=== PATIENT | female | born 1935 | race Caucasian/White ===

== ENCOUNTER 2016-12-10 05:37 | Inpatient (IN) | payer MEDICARE, OTHER ==
[2016-12-10] VITALS (12 sets, daily range): BP systolic 90–148; BP diastolic 48–75; PULSE 57–91; RESP 14–18; O2SAT 92–98
[~2016-12-10] VITALS: Ht 157.5 cm; Wt 77.2 kg
[2016-12-10] MEDS: Lactated Ringer's 1,000 ML IV SCH ×5 (05:00→22:15)
[~2016-12-10 05:37] MED LIST: ALBU18HF INH; ASPI325T32 PO; CALC600T12 PO; CHOL10008 PO; DESO15CR25 TOP; DOCU250C2 PO; FLUO60SO2 TOP; METR45CR TOP; NITR0.4T SL; OSPE60TA2 PO; POLY17PO6 PO; RABE20TA27 PO; RANI300C PO; SIMV40TA5 PO; TELM20TA PO; TIOT18CA3 IH
[2016-12-10] MEDS ORDERED: Vancomycin 1,000mg/200 mL NS IV ONE (05:53)
[2016-12-10] MEDS: CeFAZolin 2 Gm/50 mL D5W IV Premix IV SCH ×2 (06:00→07:55)
[2016-12-10] MEDS ORDERED: Bupivacaine Liposome 1.3% 20 mL Inj INFILTRATE SCH (06:00)
[2016-12-10] MEDS: Vancomycin Inj 1,250 MG in 0.9% Sodium Chloride 250 ML IV SCH ×2 (06:00→06:26)
--- NOTE | 2016-12-10 07:28 | PCM.HPANE ---
Patient Data Date of Service: Dec 10, 2016 Surgeon Admitting Provider: Attending Provider:Eder Mcconnell DO Primary Care Physician:Haritha Schumacher MD Other Provider:Meg Veronica Anesthesia Reason for Visit Right Knee Arthritis Ht/WT & BMI Height (Feet): 5 Height (Inches): 2 Weight (Kilograms): 77.2 Body Mass Index 31.00 Allergies Coded Allergies: codeine (Verified Adverse Reaction, Severe, WEIRD DREAMS, 12/02/16) Past Anesthesia History Anesthesia History: Denies:: Abnormal Airway, Anesthesia Reactions, Difficult Intubation, Fam Anesthesia Reaction, Fam Malignant Hypertherm, Malignant Hyperthermia Diabetes History Hx Diabetes?: No MRSA MRSA: No Medications Blood Thinner: Aspirin Hypertension Medication: Yes Home Meds Incl Beta Barbi: No Reported Medications Cholecalciferol (Vitamin D3) (Vitamin D3)1,000 Unit Tab.chew1,000 Unit PO DAILY 12/02/16 Albuterol Sulfate (Ventolin HFA Inhaler)200 Puff/18 Gm Inhaler1 Puff INH Q4 PRN For Wheezing #1 INHALER Ref 0 12/02/16 Tiotropium [place] (Spiriva)18 Mcg Cap.w.dev18 Mcg IH DAILY #1 PKG Ref 0 12/02/16 Simvastatin 40 Mg Dvilgo75 Mg PO HS 30 Days Ref 0 12/02/16 Ranitidine 300 Mg Ljgyhfe414 Mg PO DAILY Ref 0 12/02/16 Ospemifene (Osphena)60 Mg Dmtdgx07 Mg PO DAILY 12/02/16 Nitroglycerin SL (Nitrostat)0.4 Mg Tab.subl0.4 Mg SL Q5MIN PRN For Chest Pain # 1 BOTTLE 12/02/16 Polyethylene Glycol 3350 (Miralax)17 Gm Powd.pack17 Gm PO DAILY 12/02/16 Telmisartan (Micardis)20 Mg Eevdcb91 Mg PO DAILY 12/02/16 Docusate Sodium 250 Mg Bpymqis440 Mg PO DAILY Ref 0 12/02/16 Calcium Carbonate (Calcium)600 Mg Itdwje078 Mg PO DAILY 12/02/16 Aspirin 325 Mg Swawnm442 Mg PO DAILY #1 BOTTLE 12/02/[address] 20 Mg Dquwoa01 Mg PO BID 12/02/16 Discontinued Reported Medications Metronidazole (Metronidazole Cream)45 Gm Cream..g.1 Applic TOP BID #45 GM Ref 0 12/02/16 Fluocinolone Acetonide (Fluocinolone Acetonide 0.01% Solution)60 Ml Solution1 Applic TOP BID PRN For Itching #60 ML Ref 0 12/02/16 Desonide (Desonide Cream)15 Gm Cream..g.1 Applic TOP BID #1 TUBE Ref 0 12/02/16 History History of ENT Problems?: Yes HEENT History: Positive for:: Cataracts (ilir surgery) Hearing Problem Denies:: Abnormal Airway Difficult Intubation Dysphagia Glaucoma Sinus Problem TMJ Denture Type: None Teeth Condition: Within Normal Limits Hx of Heart Problems?: Yes Cardiovascular History: Positive for:: Cardiac Surgery (remote hx of 2 stents (1999)) Hypertension Irregular Heartbeat Valvular Heart Disease (echo 2016 ef 60%) Denies:: AICD Atrial Fibrillation Chest Pain Congestive Heart Failure Heart Murmur Pacemaker Hx of Respiratory Problem?: Yes Respiratory History: Positive for:: Asthma COPD Cough (from reflux) Pneumonia (not for a "long time now") Use of Inhalers / NEBS Denies:: Hemoptysis Oxygen Administration Tuberculosis Use of C-PAP Machine (referred, but did not do sleep study) Hx Neurologic Problems?: No Neurological History: Denies:: CVA Dementia Dizziness Headaches Multiple Sclerosis Parkinson's Disease Seizures Hx of GI Problems?: Yes Hx of Problems?: Yes Genitourinary History: Denies:: Kidney Stones Urinary Tract Infection (not for a couple years now) Female Hx: Positive for:: Problems with Breasts? (benign) Denies:: Currently Skin History: Denies:: History Skin Disorders? Pressure Ulcers Hx Musculoskeletal Problems?: Yes Musculoskeletal History: Positive for:: Degenerative Joint Musculoskeletal Trauma (right knee current admission problem) Osteoarthritis Denies:: Back Injury Fibromyalgia Joint Replacement Myasthenia Gravis Systemic Lupus Hx of Psycho/Social Problems?: No Psycho Social History: Denies:: Anxiety Bipolar Disorder Hx Depression Hx Surgeries?: Yes (gastroplasty, bilat knee, bilat shoulders, lAP AKIRA, ) Hx Any Other Health Problems?: Yes Other History: Positive for:: Cancer (basal cell carcinoma) Hospitalization Denies:: Endocrine Disease Thyroid Disease History Blood Transfusions: Positive for:: Accept Blood Products? Denies:: Blood Transfusions Hx Diabetes: No Hx Alcohol Use: NoHx Substance Use: No Smoking Status: Former Smoker Have You Smoked inLast 12 mo: No Stop/Bang S-Snoring: Do You Snore Loudly: No T-Tired: feel tired, fatigued: No O-Obsered: Observed not breath: No P-Blood Pressure: treated: Yes B- Body Mass Index > 35 kg/m2: No A- Age over 50: Yes N- Neck Large Circumference: No G- Gender Male: No AMBROCIO Total Score: 2 AMBROCIO Risk Assessment: Low Risk, <3 Yes Risk Assessment Category Category 1A: Patient has history of documented sleep apnea, and HAS NOT received any narcotic, sedative or anesthesia administration during this stay. Category 1B: Patient has history of documented sleep apnea, and HAS received any narcotic , sedative or anesthesia administration during this stay Category 2: Patient has SUSPECTED Obstructive Sleep Apnea, and HAS received any narcotic , sedative or anesthesia administration during this stay. Category 3: Patient has SUSPECTED Obstructive Sleep Apnea and HAS NOT received narcotic, sedative or anesthesia administration during this stay. Category 4: Outpatient in Procedural Areas with known sleep apnea or who screen positive for High Risk via the STOP/BANG questionnaire. Exam Exam Vital Signs Vital Signs Date Time Temp Pulse Resp B/P Pulse Ox O2 Delivery O2 Flow Rate FiO2 12/10/16 06:01 36.1 64 17 148/64 96 Room Air General Appearance: Alert, Oriented X3, Cooperative, No Acute Distress HEENT/AIRWAY: MP 2 Lungs: Normal Air Movement Heart: Exam Unremarkable Meds/Labs/Diagnostics Admission Meds Current Medications Lactated Ringer's 1,000 ml @ 120 mls/hr Q8H20M IV Last administered on 05:48; Start 12/10/16 at 05:00; Stop 12/10/16 at 13:19 Vancomycin HCl/ Sodium Chloride (Vancocin Inj/ Normal Saline) 250 ml @ 166.667 mls/hr PREOP IV Last administered on 12/10/16 06:26; Start 12/10/16 at 06:00; Stop 12/10/16 at 17:00 Plan Impression Patient chart reviewed, patient interviewed and anesthestic plan with risks, benefits, and alternatives discussed, and informed consent obtained. NPO per Anesth. Guidelines: Yes ASA Physical Status: ASA3 Severe Disease (copd, cad) Anesthetic Plan: Regional Block (adductor canal block), SAB Bene/Risks/Altern/Consents: Yes HP Complete Prior to Induction: Yes Malachi Pakr MD Dec 10, 2016 07:02
[2016-12-10] MEDS ORDERED: Bupivacaine Liposome 1.3% 20 mL Inj INFILTRATE ONE (08:18)
[2016-12-10] MEDS ORDERED: 0.9% Sodium Chloride 10 mL Inj INFILTRATE ONE (08:18)
[2016-12-10] MEDS ORDERED: Bupivacaine-MPF 0.5% W/EPI 30 mL Inj INFILTRATE ONE (08:18)
[2016-12-10] MEDS ORDERED: Lactated Ringer's 1,000 ML IV SCH (08:23)
[2016-12-10] MEDS ORDERED: Lactated Ringer's 500 ML IV PRN (08:23)
[2016-12-10] MEDS ORDERED: Labetalol 5 mg/mL 4 mL Inj IV PRN (08:25)
[2016-12-10] MEDS ORDERED: Phenylephrine 10,000 mCg/mL Inj IVPUSH PRN (08:25)
[2016-12-10] MEDS ORDERED: EPHEDrine Sulfate 50 mg/mL Inj IVPUSH PRN (08:25)
[2016-12-10] MEDS ORDERED: Albuterol-Ipratropium 3 mL Inhalation Solution NEB PRN (08:25)
[2016-12-10] MEDS ORDERED: Dexamethasone 4 mg/mL Inj IVPUSH PRN (08:25)
[2016-12-10] MEDS ORDERED: MetoCLOpramide 5 mg/mL 2 mL Inj IVPUSH PRN (08:25)
[2016-12-10] MEDS ORDERED: Atropine 0.4 mg/mL Inj IVPUSH PRN (08:25)
[2016-12-10] MEDS ORDERED: HYDROmorphone 1 mg/mL Inj IVPUSH PRN (08:25)
[2016-12-10] MEDS ORDERED: fentaNYL-PF 50 mCg/mL 2 mL Inj IVPUSH PRN (08:25)
[2016-12-10] MEDS ORDERED: Ondansetron 2 mg/mL 2 mL Inj IVPUSH PRN (08:25)
[2016-12-10] MEDS ORDERED: Acetaminophen IV 1,000 MG in IV Premix 1 EACH IV PRN (09:45)
[2016-12-10] MEDS ORDERED: Polyethylene Glycol (PEG) 17 Gm Powder PO PRN (09:45)
[2016-12-10] MEDS ORDERED: HYDROcodone-APAP 5-325 mg Tablet PO PRN (09:45)
[2016-12-10] MEDS ORDERED: Magnesium Hydroxide 10 mL Oral Concentration PO PRN (09:45)
[2016-12-10] MEDS ORDERED: HYDROmorphone 2 mg/mL Inj IVPUSH PRN (09:45)
[2016-12-10] MEDS ORDERED: Sodium Biphos-Phos 133 mL Enema RECTAL PRN (09:45)
[2016-12-10] MEDS ORDERED: diphenhydrAMINE 25 mg Capsule PO PRN (09:45)
--- NOTE | 2016-12-10 09:54 | PCM.ANEP1 ---
Post Anesthesia PACU Phase 1 Assessment Date of Service: Dec 10, 2016 Vital Signs Vital Signs Date Time Temp Pulse Resp B/P Pulse Ox O2 Delivery O2 Flow Rate FiO2 12/10/16 09:50 17 93 12/10/16 09:45 61 14 108/58 94 12/10/16 09:40 36.4 59 17 90/58 93 Room Air 12/10/16 06:01 36.1 64 17 148/64 96 Room Air Anesthetic Administered: Regional Block, SAB Level of Alertness: Awake, talking AMAYA's with Equal Strength: No Pain: No Nausea or Vomiting: No CV Function & Hydration Stable: Yes Airway Device: Oxygen Delivery: Room Air Lungs: Normal Air Movement Dermatome Level: T10 (Umbilicus) PACU Phase 2 Assessment Complications: No Follow up Care: N/A Patient Instructions Provided: N/A Malachi Park MD Dec 10, 2016 09:54
[2016-12-10] MEDS ORDERED: Ondansetron 2 mg/mL 2 mL Inj ONE (10:57)
[2016-12-10] MEDS ORDERED: Propofol 10,000 mCg/mL 20 mL Inj ONE (10:57)
[2016-12-10] MEDS ORDERED: fentaNYL-PF 50 mCg/mL 2 mL Inj ONE (10:57)
[2016-12-10] MEDS ORDERED: Dexamethasone 4 mg/mL Inj ONE (10:57)
[2016-12-10] MEDS ORDERED: Phenylephrine/NS 100 mCg/mL 10 mL Syringe IVPUSH ONE (10:57)
--- NOTE | 2016-12-10 11:02 | DRSVH ---
PROCEDURE: X-RAY RIGHT KNEE, ONE OR TWO VIEWS ([id number]) INDICATIONS: s/p right TKA TECHNIQUE: 2 view(s) of the knee acquired. COMPARISON: None. FINDINGS: Bones: Patient is status post knee joint arthroplasty. Hardware components are in expected position s. Visualized bony structures are intact. Soft tissues: Overlying postoperative changes are noted. IMPRESSION: Expected postoperative appearance. Dictated by: Med Márquez M.D. on 12/10/2016 at 11:00 Approved by: Med Márquez M.D. on 12/10/2016 at 11:00
--- NOTE | 2016-12-10 12:36 | NUR ---
Post Op Pt received from PACU into room 1001 at about 1053. Pt has denied any pain or discomfort, tolerating general diet without c/o nausea. Dressing over R knee CDI. Pt able to wiggle toes, brisk cap refill. Plan of care reviewed with pt, enc to use call light for all needs. Family at bedside. Cont to monitor.
--- NOTE | 2016-12-10 14:51 | OP ---
[address] [address] OPERATIVE REPORT PATIENT: CARLOS A ROTH : 1935 MR#: [id number] ADMIT: 12/10/2016 JOB ID: [id number] DATE OF SURGERY: 12/10/2016 PREOPERATIVE DIAGNOSIS(ES): Right knee degenerative joint disease. POSTOPERATIVE DIAGNOSIS(ES): Right knee degenerative joint disease. PROCEDURE: Right total knee arthroplasty. SURGEON: Eder Mcconnell DO. CLINICAL TEAM LEAD: Maye Ramirez PA-C. INDICATIONS: The patient is an 81-year-old female with right knee severe degenerative arthritis with failed conservative measures and wished to proceed with a right total knee arthroplasty. We discussed the risks, benefits and possible complications of surgery including, but not limited to, injury to nerves and vessels, infection, bleeding, incomplete relief of symptoms, stiffness, need for additional procedures. All questions were answered. She wished to proceed. PROCEDURE IN DETAIL: The patient was brought to the operating room. She was given a preoperative antibiotic, adductor canal block and spinal anesthetic. The right lower extremity was sterilely prepped and draped. One gram TXA was given preoperatively, as well as vancomycin and Ancef. The right knee was sterilely prepped and draped, and a tourniquet was used for hemostasis. An incision was made over the anteromedial knee and dissection was carefully carried through subcutaneous tissue. Electrocautery was used for hemostasis, and a slit was made in the quad tendon leaving a cuff of tissue for repair. This was taken along the medial retinaculum onto the proximal medial tibial face. A small medial release was performed at the time and a portion of the medial meniscus was removed. The patella was then everted, and the distal femur was instrumented with an intramedullary yolande. A 5-degree distal valgus cut angle was chosen with 10 mm planned resection. The block was pinned into position. The cut was performed. Next, the tibia was addressed with an extramedullary tibial cutting guide placed parallel to the long axis of the tibia. This was pinned into position. The cut was performed, completed with an osteotome, and the tibial cut surface was removed. The femur was then sized, felt to be a size 5 with 3 degrees of external rotation. The 4:1 cutting block was pinned into position. The distal femoral cuts were then performed, and some posterior release was performed medially. The remainder of the menisci were then removed and the notch cut was then made by pinning the notch cut guide into position and performing the notch cut. Next, the knee was trialed with a 5 femur and 5 tibia which seemed to fit quite nicely. The patella was then resurfaced with a free-hand type technique, cut from initial thickness of 25 to a thickness of 15. A 35-mm patellar button was chosen, drilled for trial and had excellent tracking. The tibia was drilled and punched. The femur was drilled. The components were then cemented into position beginning with the DePuy Attune fixed bearing 5 tibia, followed by the DePuy Attune posterior stabilized 5 femur and an 8-mm thick poly with 35-mm patellar button. All excess cement was removed and once the cement had been allowed to polymerize, the tourniquet was let down. Electrocautery was used for hemostasis, and the knee was then closed with interrupted #1 Surgilon to repair the capsule and subcu was closed with 2-0 and 3-0 Vicryl, followed by running subcuticular 3-0 V-Loc. A mixture of Exparel, saline and Marcaine was added as an adjunct of local anesthetic. Sterile dressings were applied. Patient tolerated the procedure well. sales and marketing assistant was required for the successful completion of the procedure. Blood loss was 25 cc. POSTOPERATIVE PROTOCOL: Have the patient weightbear to tolerance, use a walker for ambulation and follow up in the clinic in two weeks for a postop check.
[2016-12-10] MEDS ORDERED: Albuterol 2.5 mg/3 mL Inhalation Solution NEB PRN ×2 (14:55→20:00)
[2016-12-10] MEDS ORDERED: CeFAZolin Inj 2 GM in IV Premix 1 EACH IV SCH (16:30)
[2016-12-10] MEDS ORDERED: 0.9% Sodium Chloride 100 ML ONE (19:54)
[2016-12-10] MEDS: CeFAZolin Inj 2 GM in IV Premix 1 EACH IV SCH (20:03)
[2016-12-10] MEDS: Sodium Chloride LOK Flush 10 mL Syringe IV SCH (20:03)
[2016-12-10] MEDS: Senna-Docusate 8.6-50 mg Tablet PO SCH (21:04)
[2016-12-10] MEDS: Pantoprazole 40 mg ER24 Tablet PO SCH (21:04)
[2016-12-11 00:13] VITALS: BP 167/72; PULSE 91; RESP 18; O2SAT 97
[2016-12-11] MEDS: Sodium Chloride LOK Flush 10 mL Syringe IV SCH ×3 (00:49→14:33)
[2016-12-11] MEDS: Ondansetron 2 mg/mL 2 mL Inj IVPUSH PRN ×2 (03:37→10:01)
[2016-12-11] MEDS: CeFAZolin Inj 2 GM in IV Premix 1 EACH IV SCH (03:45)
--- NOTE | 2016-12-11 04:10 | NUR ---
Nursing, NOC shift Assumed care of patient at 2400. Patient is a/o, able to make needs known. R knee is elevated on 1 pillow, bandage and rei wrap is CDI. HOB up 45 degrees r/t GERD; additional pillows provided for repositioning/comfort. Tolerating RA, denies sob/dyspnea. PRN Zofran 8mg given for c/o nausea r/t [place] given @ HS. [place] and sips of ice water helpful, cool cloth to forehead. VSS, call light w/in reach. CTM for changes. Addendum: 12/11/16 at 0624 by MICHAEL LUO RN 0400: patient states "I think the vicodin I had yesterday made my stomach upset." approx 100cc clear watery emesis noted in emesis bag. Continues to take small bites of saltines. Sprite and ice water available at bedside. Tolerated PO Protonix. Ambulated w/ SBA to bathroom. OOB to chair for approx an hour while her visited. Care continues.
[2016-12-11 04:17] VITALS: BP 136/70; PULSE 76; RESP 18; O2SAT 94
[2016-12-11 05:56] LABS: BASOPHILS % (AUTO) 0.2 % (0-3); EOSINOPHILS % (AUTO) 0.1 % (0-5); MONOCYTES % (AUTO) 14.4 % (4-12); Mean Corpuscular Hemoglobin 31.4 pg (27.0-35.0); Mean Corpuscular Volume 92.2 fL (81-100); NEUTROPHILS % (AUTO) 65.2 % (40-74); Platelet Count 220 bil/L (150-400)
[2016-12-11] MEDS ORDERED: Pantoprazole 40 mg ER24 Tablet PO SCH (06:30)
[2016-12-11] MEDS: OSPEMIFENE 60 MG PO SCH (08:30)
[2016-12-11] MEDS: Senna-Docusate 8.6-50 mg Tablet PO SCH ×2 (08:30→20:30)
[2016-12-11] MEDS: Calcium Carbonate (Oyster Shell) 500 mg Tablet PO SCH (08:30)
[2016-12-11] MEDS: Polyethylene Glycol (PEG) 17 Gm Powder PO SCH (08:30)
[2016-12-11] MEDS ORDERED: Tiotropium 18mcg/Cap 5 Capsule Inhaler Kit INHALATION SCH (08:30)
--- NOTE | 2016-12-11 09:33 | PCM.PNORTH ---
Subjective Date of Service: Dec 11, 2016 Visit Information: Reason for Visit Right Knee Arthritis Surgery/Surgery Date right TKA 12/10/2016 Post-Op Day # 1 Date of Admission: Dec 10, 2016 at 10:56 Hospital Day # Subjective Patient complains of nausea and vomiting. She ambulated well yesterday and sat up in a chair for a few hours. This morning she "feels terrible". Postop General: No Shortness of Breath, No Chest Pain Pain Management: PO Objective Exam Objective Patient is seen sitting up in bed Vital Signs and I/O Vital Sign - Last Date Time Temp Pulse Resp B/P Pulse Ox O2 Delivery O2 Flow Rate FiO2 12/11/16 04:17 36.9 76 18 136/70 94 Room Air 12/10/16 10:40 2 Intake and Output 12/10/16 12/10/16 12/11/16 Cumulative From/Thru 15:00 23:00 07:00 12/02/16 16:01 - 12/11/16 06:26 Intake Total 1270 ml 926 ml 200 ml 2646 ml Output Total 25 ml 1020 ml 700 ml 1745 ml Balance 1245 ml -94 ml -500 ml 901 ml Intake Oral 850 ml 200 ml 1050 ml IV Total 1270 ml 76 ml 1596 ml Output Urine Total 1020 ml 700 ml 1720 ml Estimated Blood Loss 25 ml 25 ml # Bowel Movements 0 0 0 Lab & Micro Results Laboratory Tests Test 12/11/16 05:35 White Blood Count 12.5th/mm3 (3.8-10.1) Red Blood Count 4.24mil/mm3 (3.90-5.20) Hemoglobin 13.3g/dL (12.0-15.6) Hematocrit 39.1% (35.0-46.0) Mean Corpuscular Volume 92.2fL (81-100) Mean Corpuscular Hemoglobin 31.4pg (27.0-35.0) Mean Corpuscular Hemoglobin Concent 34.0% (32.0-37.0) Red Cell Distribution Width 13.3% (12.3-15.4) Platelet Count 220bil/L (150-400) Neutrophils (%) (Auto) 65.2% (40-74) Lymphocytes (%) (Auto) 19.9% (14-46) Monocytes (%) (Auto) 14.4% (4-12) Eosinophils (%) (Auto) 0.1% (0-5) Basophils (%) (Auto) 0.2% (0-3) Sodium Level 136mEq/L (134-144) Potassium Level 4.2mEq/L (3.5-5.2) Chloride Level 98mEq/L (97-108) Carbon Dioxide Level 20mmol/L (18-29) Blood Urea Nitrogen 17mg/dL (8-27) Creatinine 1.23mg/dL (0.57-1.00) Estimat Glomerular Filtration Rate 60mL/min (>59) Glucose Level 130mg/dL (60-99) Calcium Level 9.1mg/dL (8.5-10.1) Result Diagram: 12/11/1635 12/11/1635 General Appearance: Alert, Oriented X3, Cooperative, Mild Distress Extremities: Distal Pulses Palpable, No Compartment Syndrom Noted, Thigh & Calf Soft/Nontender Postop Sensory Motor: Distal Motor Intact, Distal Sensation Intact, NVI Distally SURGICAL WOUND : Wound Location/Description Right knee: Surgical dressing is clean, dry and intact Activity: Activity per PT Catheters: None Assessment & Plan Impression POD #1 status post right TKA Problems: Plan Weightbearing: Weightbearing as tolerated with wheeled walker DVT prophylaxis: aspirin 325 mg twice a day 6 weeks Physical therapy for transfers, progressive ambulation, therapeutic exercise We will continue with Tylenol IV for pain control. Tramadol is also ordered. Fentanyl patch 12 g is also ordered. Hopefully these will manage the patient' s pain and avoid oral medications today until her stomach settles down Wound care: PA will change dressing on postop day 2 Discharge plan: Discharge home in 1-2 days. Start outpatient physical therapy next week Follow-up plan: In 2 weeks at [facility] with PA for wound check and at [address] Mcconnell with x-rays Pain Management: [place] Tylenol IV VTE Prophylaxis: SCDs, Other (aspirin) Resuscitation Status: CPR: Attempt Resuscitation [place] ValleyMaye Hennessy PA-C Dec 11, 2016 09:33
[2016-12-11] MEDS ORDERED: Magnesium Hydroxide 10 mL Oral Concentration PO PRN (10:09)
[2016-12-11 10:22] VITALS: BP 178/81; PULSE 70; RESP 18; O2SAT 96
[2016-12-11] MEDS: Lactated Ringer's 1,000 ML IV SCH ×2 (10:45→23:15)
[2016-12-11 11:30] VITALS: PULSE 72; RESP 18; O2SAT 92
[2016-12-11] MEDS: Tiotropium 18mcg/Cap 5 Capsule Inhaler Kit INHALATION SCH (11:46)
[2016-12-11] MEDS: Pantoprazole 40 mg ER24 Tablet PO SCH ×2 (11:50→19:41)
--- NOTE | 2016-12-11 11:58 | NUR ---
Fentanyl patch / Nausea / Ambulation Fentanyl Patch placed on upper right chest. Nausea continues intermittently. Per pt she will fee fine and then all the sudden nauseas again. 8mg Zofran given which seems to help some. Movement and pain seem to increase nausea. Ambulated SBA FWW well to bathroom. Care continues
[2016-12-11] MEDS ORDERED: MetoCLOpramide 5 mg/mL 2 mL Inj IVPUSH PRN (12:25)
[2016-12-11] MEDS: hydrOXYzine Pamoate 25 mg Capsule PO PRN ×2 (14:55→19:41)
--- NOTE | 2016-12-11 17:45 | NUR ---
Social Work- Initial Assessment/ Readiness for D/C/Multidisciplinary Rounds Data: See Initial Assessment and Advance Directive Intervention for additional information. Pt discussed in rounds. Pt is POD 1. Pt is not ready for discharge at this time. PT is working with pt, SW will continue to follow for d/c planning needs as mobility progresses. Pt is a 81 year old female admitted 12/10/16 for right TKA per H&P. Pt's insurance is [employer] and [employer]. Pt's PCP is Haritha Schumacher MD. Pt's readmit risk score is not listed at this time. SW met with pt at bedside regarding discharge plan, SW role explained. Pt alert and oriented x3. Pt's capacity for self-care assessed. Pt resides in [place] in a home with spouse. Pt is independent with ADLs and self-care. Pt uses no DME at baseline but has a cane and walker available for use. Pt drives. Pt has no history with HH services. Pt has no history with SNF services. Pt has no DPOA on file and SW requested that pt bring in copy of DPOA. Pt already has her outpt PT coordinated. SW provided Discharge planning Checklist and requested that pt contact [employer] [facility] if needs identified. SW provided phone number and plan on whiteboard. Pt anticipated to discharge home via POV with her . Pt agreeable. SW will continue to follow. Assessment: Pt who is independent at baseline. Plan: Pt anticipated to discharge home via POV with her . SW will continue to follow. PRADEEP Sgaastume Addendum: 12/11/16 at 1747 by STEPHANIE KEMP Amended: Links added.
[2016-12-11 19:23] VITALS: BP 177/83; PULSE 76; RESP 18; O2SAT 94
[2016-12-11 21:32] VITALS: PULSE 77; RESP 18; O2SAT 93
[2016-12-12] MEDS: Sodium Chloride LOK Flush 10 mL Syringe IV SCH ×2 (00:30→08:33)
--- NOTE | 2016-12-12 01:11 | NUR ---
Sleep Patient denies pain and nausea at this time. Sleeping soundly at each rounding. Bed in low position, call light within reach, intentional rounding.
[2016-12-12 04:22] VITALS: BP 165/79; PULSE 78; O2SAT 95
[2016-12-12 06:23] LABS: BASOPHILS % (AUTO) 0.2 % (0-3); EOSINOPHILS % (AUTO) 0.4 % (0-5); MONOCYTES % (AUTO) 14.8 % (4-12); Mean Corpuscular Hemoglobin 30.9 pg (27.0-35.0); Mean Corpuscular Volume 93.4 fL (81-100); NEUTROPHILS % (AUTO) 69.8 % (40-74); Platelet Count 189 bil/L (150-400)
[2016-12-12] MEDS ORDERED: Pantoprazole 4 mg/mL 10 mL Inj IVPUSH SCH (07:30)
[2016-12-12] MEDS: OSPEMIFENE 60 MG PO SCH (08:30)
[2016-12-12] MEDS: Polyethylene Glycol (PEG) 17 Gm Powder PO SCH (08:30)
[2016-12-12] MEDS: Senna-Docusate 8.6-50 mg Tablet PO SCH (08:31)
[2016-12-12] MEDS: Pantoprazole 40 mg ER24 Tablet PO SCH (08:31)
[2016-12-12] MEDS: Calcium Carbonate (Oyster Shell) 500 mg Tablet PO SCH (08:32)
[2016-12-12] MEDS: hydrOXYzine Pamoate 25 mg Capsule PO PRN (08:34)
[2016-12-12] MEDS: Tiotropium 18mcg/Cap 5 Capsule Inhaler Kit INHALATION SCH (08:35)
--- NOTE | 2016-12-12 08:46 | PCM.PNORTH ---
Subjective Date of Service: Dec 12, 2016 Visit Information: Reason for Visit Right Knee Arthritis Surgery/Surgery Date R TKA 12/10/16 Post-Op Day # 2 Date of Admission: Dec 10, 2016 at 10:56 Hospital Day # Subjective Patient reports feeling much better today. Her abdominal issues have settled down. She did much better after Reglan and changing pain medications to fentanyl and tramadol. She is looking forward to walking today. Postop General: No Complaints, No Shortness of Breath, No Chest Pain Pain Management: PO Objective Exam Objective Patient was seen sitting up in bed. Vital Signs and I/O Vital Sign - Last Date Time Temp Pulse Resp B/P Pulse Ox O2 Delivery O2 Flow Rate FiO2 12/12/16 04:22 36.8 78 165/79 95 Nasal Cannula 12/11/16 21:32 18 2.00 Intake and Output 12/11/16 12/11/16 12/12/16 Cumulative From/Thru 14:59 22:59 06:59 12/02/16 16:01 - 12/12/16 05:41 Intake Total 120 ml 800 ml 200 ml 3766 ml Output Total 1200 ml 800 ml 3745 ml Balance 120 ml -400 ml -600 ml 21 ml Intake Oral 800 ml 200 ml 2050 ml IV Total 120 ml 1716 ml Output Urine Total 1200 ml 800 ml 3720 ml Estimated Blood Loss 25 ml # Bowel Movements 0 0 0 Lab & Micro Results Laboratory Tests Test 12/12/16 06:00 White Blood Count 10.2th/mm3 (3.8-10.1) Red Blood Count 4.24mil/mm3 (3.90-5.20) Hemoglobin 13.1g/dL (12.0-15.6) Hematocrit 39.6% (35.0-46.0) Mean Corpuscular Volume 93.4fL (81-100) Mean Corpuscular Hemoglobin 30.9pg (27.0-35.0) Mean Corpuscular Hemoglobin Concent 33.1% (32.0-37.0) Red Cell Distribution Width 13.4% (12.3-15.4) Platelet Count 189bil/L (150-400) Neutrophils (%) (Auto) 69.8% (40-74) Lymphocytes (%) (Auto) 14.7% (14-46) Monocytes (%) (Auto) 14.8% (4-12) Eosinophils (%) (Auto) 0.4% (0-5) Basophils (%) (Auto) 0.2% (0-3) Result Diagram: 12/12/16 0600 12/11/16 0535 General Appearance: Alert, Oriented X3, Cooperative, No Acute Distress Extremities: Distal Pulses Palpable, No Compartment Syndrom Noted, Thigh & Calf Soft/Nontender Postop Sensory Motor: Distal Motor Intact, Distal Sensation Intact, NVI Distally SURGICAL WOUND : Wound Location/Description Right knee: Surgical dressing is removed. The wound is well approximated and covered with Steri-Strips. There is no erythema or drainage present. The wound is cleansed with hydrogen peroxide. Dressing was changed to Silver line and ABD which was held in place with elastic bandage until NEREIDA hose are applied Dressing & Drainage Status: Changed Activity: Activity per PT Catheters: None Assessment & Plan Impression 1. POD #2 status post right total knee arthroplasty 2. Postoperative nausea and vomiting - resolved Problems: Plan Weightbearing: Weightbearing as tolerated with wheeled walker DVT prophylaxis: aspirin 325 mg twice a day 6 weeks Physical therapy for transfers, progressive ambulation, therapeutic exercise Pain management is doing much better with fentanyl patch, tramadol and Vistaril. Nausea has resolved Wound care: Dressing was changed today to silver long and ABD Nursing will apply thigh-high NEREIDA hose today. Please remove Alvaro wrap from right leg. Discharge instructions reviewed with the patient Discharge plan: Discharge home today. Start outpatient physical therapy next week Follow-up plan: In 2 weeks at [facility] with MILAGROS for wound check and at [address] Mcconnell with x-rays Pain Management: Fentanyl patch, tramadol, Vistaril VTE Prophylaxis: SCDs, Other (aspirin) Resuscitation Status: CPR: Attempt Resuscitation Maye Ramirez PA-C Dec 12, 2016 08:46
--- NOTE | 2016-12-12 08:49 | PCM.DIORTH ---
Ortho Discharge Instruction Date of Service: Dec 12, 2016 Dates of Hospitalization Date of Hospital Admission Dec 10, 2016 at 10:56 Providers Admitting Physician: Eder Mcconnell DO Primary Care Physician: Haritha Schumacher MD Attending Physician: Eder Mcconnell DO Activity Discharge Activity-General: Be up and about, Balance rest and activity, Elevate & ice extremity (Ice 6-10 times a day), May drive in (1 month) Right Lower Extremity: Weight Bearing as tolerated Discharge Assist Device: Front Wheeled Walker Dressing and Incisional Care Discharge Dressing Care: Keep dressing clean, dry & intact Discharge Hygiene: May shower (see instructions below), DO NOT soak incision under water, NO bathtub, hot tub or whirlpool Additional Instructions Discharge Instructions Weightbearing: Weightbearing as tolerated with wheeled walker DVT prophylaxis: aspirin 325 mg twice a day 6 weeks Wound care: change every 2-3 days. Wear thigh-high NEREIDA hose for 4 weeks on right leg, and for 2 weeks on left leg. Please remove Alvaro wrap from right leg when wearing NEREIDA hose. Pain medicines: Fentanyl patch - wear for 3 days, then remove before applying a new patch. Tramadol pills. Start outpatient physical therapy next week Activity: get up every hour you are awake and do some exercise for your knee. Either walking or exercises or bending and straightening. You may push it with bending, it will be sore but you will not harm it by bending. On Friday, the patient may shower if the wound has no drainage present. Wound may be uncovered to shower. Let soap and water run over the wound, pat dry and apply a new dressing. Dressing change: Get the silver dressing wet with 1 syringe of saline, lay the silver side down against the skin over the incision, and cover with big square pad. Elastic stockings or Alvaro wrap will hold the dressing in place Follow Up Plan Follow Up Plan Follow-up plan: In 2 weeks at [facility] with MILAGROS for wound check and at [address] Mcconnell with x-rays Call your provider for: Fever, Chills, Shortness of breath, Vomitting, Drainage at incision, Wound redness (that is spreading), Increasing pain (for no reason) Maye Ramirez PA-C Dec 12, 2016 08:49
[2016-12-12] MEDS ORDERED: ASPI325T32 PO (09:04)
[2016-12-12] MEDS ORDERED: TRAM-14 PO (09:04)
[2016-12-12] MEDS ORDERED: Fentanyl TOPICAL (09:04)
[2016-12-12] MEDS ORDERED: HYDR-3797 PO (09:04)
--- NOTE | 2016-12-12 10:47 | PCM.DC.ORT ---
Discharge Summary Date of Service: Dec 12, 2016 Date of Hospital Admission: Dec 10, 2016 at 10:56 Date of Surgery: Dec 10, 2016 Date of Discharge: Dec 12, 2016 Reason for Hospitalization: Right knee arthritis Procedures Performed: Right total knee arthroplasty Hospital Course: The patient was admitted to the hospital on 12/10/2016 and underwent the above procedure. Antibiotic prophylaxis consisting of Ancef and vancomycin. The surgeon was Dr. Mcconnell. Patient tolerated the procedure well and was transferred to recovery room in stable condition. Patient had physical therapy to work on ambulation and transfers. Weightbearing as tolerated with walker. The patient had nausea and vomiting the first night. Pain medications were changed to tramadol and fentanyl patch which worked much better. On postop day 2 the patient performed quite well and ambulated 90 feet and did stairs. Pain was managed with tramadol, and Fentanyl patch. DVT prophylaxis: aspirin 325 mg BID., SCD's and NEREIDA hose. Patient progressed well with physical therapy and on POD-2 was discharged home. Follow-up: at [facility] 2 weeks postop for wound check and at [address] Mcconnell with x-ray Diagnosis at Time of Discharge Status post right TKA Problems: Disposition: Discharged home in stable condition Additional Information Follow-up at [facility] in 2 weeks with PA, and at [address] Mcconnell with x-ray Discharge Instructions: Discharge Activity-General: Be up and about, Balance rest and activity, Elevate & ice extremity (Ice 6-10 times a day), May drive in (1 month) Right Lower Extremity: Weight Bearing as tolerated Discharge Assist Device: Front Wheeled Walker Discharge Dressing Care: Keep dressing clean, dry & intact Discharge Hygiene: May shower (see instructions below), DO NOT soak incision under water, NO bathtub, hot tub or whirlpool Discharge Instructions Weightbearing: Weightbearing as tolerated with wheeled walker DVT prophylaxis: aspirin 325 mg twice a day 6 weeks Wound care: change every 2-3 days. Wear thigh-high NEREIDA hose for 4 weeks on right leg, and for 2 weeks on left leg. Please remove Alvaro wrap from right leg when wearing NEREIDA hose. Pain medicines: Fentanyl patch - wear for 3 days, then remove before applying a new patch. Tramadol pills. Start outpatient physical therapy next week Activity: get up every hour you are awake and do some exercise for your knee. Either walking or exercises or bending and straightening. You may push it with bending, it will be sore but you will not harm it by bending. On Friday, the patient may shower if the wound has no drainage present. Wound may be uncovered to shower. Let soap and water run over the wound, pat dry and apply a new dressing. Dressing change: Get the silver dressing wet with 1 syringe of saline, lay the silver side down against the skin over the incision, and cover with big square pad. Elastic stockings or Alvaro wrap will hold the dressing in place ([Fentanyl]) 1 PATCH PATCH 1 PATCH TOPICAL Q3D Albuterol Sulfate (Ventolin HFA Inhaler) 200 Puff/18 Gm Inhaler 1 PUFF INH Q4 PRN PRN For Wheezing Aspirin (Aspirin) 325 Mg Tablet 325 MG PO BID Calcium Carbonate (Calcium) 600 Mg Tablet 600 MG PO DAILY Cholecalciferol (Vitamin D3) (Vitamin D3) 1,000 Unit Tab.chew 1,000 UNIT PO DAILY Docusate Sodium (Docusate Sodium) 250 Mg Capsule 250 MG PO DAILY Hydroxyzine Pamoate (HydrOXYzine Pamoate) 25 Mg Capsule 25 MG PO Q6H PRN PRN For Spasm and/or Restlessness Nitroglycerin SL (Nitrostat) 0.4 Mg Tab.subl 0.4 MG SL Q5MIN PRN PRN For Chest Pain Ospemifene (Osphena) 60 Mg Tablet 60 MG PO DAILY Polyethylene Glycol 3350 (Miralax) 17 Gm Powd.pack 17 GM PO DAILY Rabeprazole DR (Rabeprazole DR) 20 Mg Tablet 20 MG PO BID Ranitidine (Ranitidine) 300 Mg Capsule 300 MG PO DAILY Simvastatin (Simvastatin) 40 Mg Tablet 40 MG PO HS Telmisartan (Micardis) 20 Mg Tablet 20 MG PO DAILY Tiotropium [place] (Spiriva) 18 Mcg Cap.w.dev 18 MCG IH DAILY Tramadol (Ultram) 50 Mg Tablet 50 MG PO Q6H PRN PRN For Mild Pain Maye Ramirez PA-C Dec 12, 2016 10:47
--- NOTE | 2016-12-12 11:38 | NUR ---
Social Work- Discharge/Multidisciplinary Rounds Data: EMR reviewed. Pt is on day 2 of hospitalization. Pt discussed in multidisciplinary rounds. Pt to discharge today. Pt's spouse to transport home via POV. SW met with pt at bedside regarding discharge plan, plan confirmed and no questions or concerns at this time. No discharge needs. Assessment: Pt who is independent at baseline. Plan: Pt's spouse to transport home via POV. No discharge needs. PRADEEP Sagastume
[2016-12-12] MEDS: Lactated Ringer's 1,000 ML IV SCH (11:45)
[2016-12-12 12:36] VITALS: BP 146/80; PULSE 82; RESP 16; O2SAT 93
--- NOTE | 2016-12-12 13:29 | NUR ---
DC Pt discharges to home with . All discharge instructions reviewed with pt. Prescriptions reviewed and in pts hand. Per pt no further questions. NEREIDA hose placed bilaterally. Dressing Silverlon, ABD under NEREIDA. Denies CP, Nausea, SOB at this time. Ambulating SBA FWW with steady gait. Pt taken to front entrance via WC with staff to go home with . Care discontinues
== END 2016-12-12 13:23 | disposition home or self-care (01) | DRG 470 ==
LOC: SAS 05:37 → OSC 10:56
PROVIDERS: ADMIT Orthopaedic Surgery; ATTEND Orthopaedic Surgery
PROC: 0SRC0J9 Replacement of Right Knee Joint with Synthetic Substitute, Cemented, Open Approach (ICD-10-PCS; principal; 2016-12-10 07:30)
DX: M17.11 Unilateral primary osteoarthritis, right knee (principal); I12.9 Hypertensive chronic kidney disease with stage 1 through stage 4 chronic kidney disease, or unspecified chronic kidney disease; N18.3 Chronic kidney disease, stage 3 (moderate); Z87.891 Personal history of nicotine dependence